=== PATIENT | female | born 1990 | race Caucasian/White ===

== ENCOUNTER 2017-09-28 03:08 | Inpatient (IN) ==
[2017-09-28] MEDS: LR 1,000 ML IV PRN ×3 (03:25→04:55)
[2017-09-28] MEDS ORDERED: CALCIUM CARBONATE Chewable 500mg TABLET PO PRN ×2 (03:44→08:53)
[2017-09-28] MEDS ORDERED: METHYLERGONOVINE 0.2 MG/ML INJECTION IM PRN (03:44)
[2017-09-28] MEDS ORDERED: MAG-AL + SIM ORAL LIQUID 30ml PO PRN (03:44)
[2017-09-28] MEDS ORDERED: CARBOPROST 250 MCG/ML INJECTION IM PRN (03:44)
[2017-09-28] MEDS ORDERED: ACETAMINOPHEN 500 MG TABLET PO PRN ×2 (03:44→08:53)
[2017-09-28] MEDS ORDERED: AMPICILLIN 2 GM in NS 100 ML IV ONE (03:45)
--- OUTSIDE RECORDS SUMMARY | 2017-09-28 03:47 | External Medical Summary | Clinical Summary ---
:1990 Author Organization [facility] Address [address] [place] [address] Phone Care Team Providers Name Role Phone Unavailable Primary Care Provider Unavailable Source Comments Some departments are not documenting in the electronic medical record. If you do not see the information that you expected, contact Release of Information in the Health Information Management department at [phone] for further assistance in locating additional records.[facility] Allergies No Known Allergies Current Medications Prescription Sig. Disp. Refills Start Date End Date Status CALCIUM CARBONATE (TUMS Take by mouth. Active 500 PO) venlafaxine XR (EFFEXOR Take 150 mg by Active XR) 150 mg capsule mouth daily. Take with food. gabapentin (NEURONTIN) 300 Take 300 mg by Active mg capsule mouth twice daily. LORazepam (ATIVAN) 0.5 mg Take 1 Tab by Active tablet mouth every 6 hours as needed for Nausea. propranolol (INDERAL) 40 Take 40 mg by Active mg tablet mouth twice daily. tiZANidine (ZANAFLEX) 2 mg Take 2 mg by mouth Active tablet at bedtime daily. ERGOCALCIFEROL (VITAMIN Take 1 Tab by Active D2) (VITAMIN D PO) mouth daily. ibuprofen (ADVIL) 200 mg Take 200 mg by Active tablet mouth every 6 hours as needed for Pain. Take with food. cetirizine (ZYRTEC) 10 mg Take 10 mg by Active tablet mouth every morning. Active Problems Problem Noted Date Chronic migraine without aura Abnormal finding on MRI of brain Overview: right temporal T2/Flair hyperintensity 05/15/2015 Family History Medical History Relation Name Comments Cancer Maternal Grandfather Hypertension Mother Migraines Mother Cancer Other Relation Name Status Comments Maternal Grandfather Mother Other Social History Tobacco Use Types Packs/Day Years Used Date Current Every Day Smoker Cigarettes Smokeless Tobacco: Never Used Alcohol Use Drinks/Week oz/Week Comments Yes Sex Assigned at Date Recorded Not on file Last Filed Vital Signs Vital Sign Reading Time Taken Blood Pressure 105/76 08/19/2016 8:21 AM CDT Pulse 78 08/19/2016 8:21 AM CDT Temperature - - Respiratory Rate - - Oxygen Saturation - - Inhaled Oxygen Concentration - - Weight 92.8 kg (204 lb 8 oz) 08/19/2016 8:21 AM CDT Height 162.6 cm (5' 4") 08/19/2016 8:21 AM CDT Body Mass Index 35.1 08/19/2016 8:21 AM CDT Plan of Treatment Health Maintenance Due Date Last Done Comments PHYSICAL (COMPREHENSIVE) EXAM 1997 HPV VACCINES (1 of 3 - Female 3 Dose Series) 2001 PERTUSSIS VACCINE 2001 TETANUS VACCINE 2007 CERVICAL CANCER SCREENING 2011 INFLUENZA VACCINE 05/26/2017
--- OUTSIDE RECORDS SUMMARY | 2017-09-28 03:47 | External Medical Summary | Clinical Summary ---
:1990 Author Organization [facility] Address [address] [address] Phone Support Name Relationship Address Phone Unavailable Unavailable [address] [facility] [place] [address] Allergies Active Allergy Reactions Severity Noted Date Comments Diphenhydramine Other (See Comments) 08/07/2015 Hallucination's Current Medications Prescription Sig. Disp. Refills Start Date End Date Status ibuprofen (ADVIL,MOTRIN) Take 200 mg by Active 200 MG tablet mouth every 6 (six) hours as needed. omeprazole (PRILOSEC) 40 Take 1 capsule 30 capsule 11 12/14/2013 Active MG capsule (40 mg total) by mouth daily. ibuprofen (ADVIL,MOTRIN) Take 1 tablet 30 tablet 0 02/21/2014 Active 800 MG tablet (800 mg total) by mouth every 6 (six) hours as needed for Pain. cyanocobalamin (VITAMIN Inject 1,000 Active B-12,) 1000 MCG/ML mcg into the injection muscle every 30 (thirty) days. Cholecalciferol (VITAMIN Take 2,000 Active D) 2000 UNITS TABS Units by mouth. doxazosin (CARDURA) 2 MG Take 1 mg po at 14 tablet 0 07/06/2015 Active tablet bedtime for 14 days venlafaxine (EFFEXOR-XR) Take 150 mg by Active 150 MG 24 hr capsule mouth daily. LORazepam (ATIVAN) 0.5 Take 0.5 mg by Active MG tablet mouth daily as needed for Anxiety. tiZANidine (ZANAFLEX) 2 Take 2 mg by Active MG tablet mouth nightly as needed (Sleep). propranolol (INDERAL) 40 Take 40 mg by Active MG tablet mouth 2 (two) times daily. Probiotic Product Take by mouth. Active (PROBIOTIC DAILY PO) verapamil (CALAN) 80 MG Take 1 tablet 30 tablet 2 08/07/2015 Active tablet (80 mg total) by mouth nightly. Active Problems Problem Noted Date Urgency of urination 07/06/2015 Immunizations Name Dates Previously Given Next Due DTP ([employer] registry) 01/27/1992, 04/22/1991, 02/18/1991, 1990 HPV, quadrivalent (Gardasil) 06/30/2008, 08/09/2007, 04/05/2007 Hib (Hboc) ([employer] registry) 01/27/1992, 04/22/1991, 02/18/1991, 1990 INFLUENZA IIV4 PF 08/07/2015 (FLULAVAL,FLUZONE,FLUARIX,AFLURIA QUAD) MMR 01/27/1992 Meningococcal Polysaccharide valent-4 05/21/2009 Diphtheria Toxoid Conjucate (Menactra) OPV ([employer] registry) 01/27/1992, 02/18/1991, 1990 Family History Medical History Relation Name Comments Heart disease Maternal Uncle Hypertension Mother Relation Name Status Comments Father Alive Maternal Uncle Mother Alive Sister Alive Social History Tobacco Use Types Packs/Day Years Used Date Former Smoker 0 5 Quit: 02/02/2013 Smokeless Tobacco: Never Used Alcohol Use Drinks/Week oz/Week Comments Yes 1 Standard drinks or equivalent 0.5 x2 glasses of wine a week Sex Assigned at Date Recorded Not on file Last Filed Vital Signs Vital Sign Reading Time Taken Blood Pressure 120/62 10/08/2015 11:34 AM [employer]IST[employer] Pulse 64 07/06/2015 9:40 AM CDT Temperature 36.8 C (98.3 F) 07/02/2014 10:08 PM CDT Respiratory Rate 16 07/02/2014 10:08 PM CDT Oxygen Saturation 96% 07/02/2014 10:08 PM CDT Inhaled Oxygen Concentration - - Weight 86.2 kg (190 lb) 08/07/2015 10:03 AM CDT Height 162.6 cm (5' 4") 08/07/2015 10:03 AM CDT Body Mass Index 32.61 08/07/2015 10:03 AM CDT Plan of Treatment Health Maintenance Due Date Last Done Comments Varicella Vaccines (1 of 2 - 2 2003 Dose Adolescent Series) DTaP,Tdap,and Td Vaccines (5 - 2009 01/27/1992, 04/22/1991, Tdap) 02/18/1991, Additional history exists CERVICAL CANCER SCREENING 2011 Influenza Vaccine (#1) 2017 08/07/2015 HPV Vaccines Completed 06/30/2008, 08/09/2007, 04/05/2007 Results Not on filefrom Last 3 Months
[2017-09-28 04:18] VITALS: BMI 40.5
[2017-09-28] MEDS ORDERED: ROPIVACAINE 1% 10MG/ML INJ 200 MG, SUFentanil 50 MCG in NS 100 ML EPI PRN (04:19)
[2017-09-28] MEDS ORDERED: DiphenhydrAMINE 50 MG/ML INJECTION IVP PRN ×2 (04:19→09:10)
[2017-09-28] MEDS ORDERED: ONDANSETRON 4 MG/2 ML INJECTION IVP PRN ×2 (04:19→09:10)
[2017-09-28] MEDS ORDERED: NALOXONE 0.4 MG/ML INJECTION IVP PRN (04:19)
--- NOTE | 2017-09-28 04:19 | Anesthesia Preoperative Report ---
Anesthesia Epidural/Spinal Rec - Date and Time Date: 09/28/17 Procedure: Labor Epidural Plan: Epidural - Vital Signs Vital Signs: Temperature 98.3 F 09/28/17 03:16 Pulse Rate 130 H 09/28/17 03:16 Respiratory Rate 20 09/28/17 03:16 Blood Pressure 128/81 09/28/17 03:16 NPO since: 1829 /Para: P:0 Heart Rate: 149 Height and Weight: 5' 4" 236 lbs - Medictaions & Allergies Inpatient Medications: Current Medications Acetaminophen (Tylenol) 500 - 1,000 mg PO Q4H PRN PRN Reason: Pain Al Hydroxide/Mg Hydroxide (Maalox Plus) 30 ml PO Q3H PRN PRN Reason: Indigestion Calcium Carbonate (Tums) 500 - 1,000 mg PO Q2H PRN PRN Reason: Indigestion Carboprost Tromethamine (Hemabate) 250 mcg IM O PRN PRN Reason: .Downtime Ampicillin Sodium 2 gm/ Sodium (Chloride) 100 mls @ 200 mls/hr IV O ONE Stop: 09/28/17 04:14 Lactated Ringer's (Lactated Ringers) 1,000 mls @ 999 mls/hr IV .Q1H1M PRN Methylergonovine Maleate (Methergine) 0.2 mg IM O PRN Misoprostol (Cytotec) 800 mcg MT ONCE PRN Allergies/Adverse Reactions: Allergies Allergy/AdvReac Type Severity Reaction Status Date / Time No Known Drug Allergies Allergy Verified 09/25/17 06:05 - Home Medications Home Medications: Home Medications Medication Instructions Recorded Confirmed Type Acetaminophen [Tylenol] 500 - 1,000 mg PO PRN PRN 09/10/17 09/25/17 History Pnv No.95/Ferrous Fum/Folic AC 1 each PO DAILY 09/10/17 09/25/17 History [ Tablet] DiphenhydrAMINE [Benadryl] 2 cap PO Q6H PRN 09/25/17 09/25/17 History Ranitidine [Zantac] 150 mg PO PRN PRN 09/25/17 09/25/17 History - Medical History Gastrointestional: Reports: Gastroesophageal Reflux Disease, Morbid Obesity Neuro/Musculoskeletal: Reports: Headaches (migraines), Other (neck fusion) Renal/Endocrine: Reports: Other (GBS (+)) Other History: Reports: Anesthesia Reactions (nausea), Now (SCAR: ) - Surgical History GI Surgery/Treatments: Reports: Cholecystectomy (2009) Musculoskeletal Surgery/Tx: Reports: Other ("FUSION ON MY NECK C5-C6") Reproductive Surgery/Treatment: DENIES: Section Anesthesia Reactions: None Hx Family Anesthesia Reaction: No History of Motion Sickness: No - Social History Smoking Status: Current every day smoker Packs per day: 0.1 Pack-years: 5 Second Hand Exposure: No Substance Use Type: does not use Alcohol Intake Frequency: does not drink Hx Chewing Tobacco Use: No - Pertinent Findings Lab Data: CBC and BMP 09/28/17 03:40 - Physical Exam Respiratory Exam: lungs clear Cardiovascular Exam: regular rate and rhythm - Airway Assessment Mallampati Score: II TMD: 3 Fingerbreadths Neck Extension: fair Overall Assessment: no airway concerns - ASA ASA Score: 3 - Discussion Discussion: Discussed risks/options/alternatives of anesthesia and questions answered. Patient consents. Nursing pain assessment noted. Anesthesia Discussion: family member Attestation Statement: Prior to the delivery of any anesthetic medication, I examined the patient, developed the plan, obtained the patient's consent and discussed the risk and benefits of the procedure with the patient/guardian.
[2017-09-28] MEDS ORDERED: CITRIC ACID/SODIUM CITRATE 30ml PO ONE (06:40)
[2017-09-28] MEDS ORDERED: FAMOTIDINE PB 20 MG/50 ML BAG IV ONE (06:40)
[2017-09-28] MEDS ORDERED: CEFAZOLIN PREMIX (MC ONLY) 2 GM/50 ML BAG IV ONE (06:40)
[2017-09-28] MEDS ORDERED: AZITHROMYCIN IV 500 MG in NS 250ml 250 ML IV ONE (06:42)
--- NOTE | 2017-09-28 06:48 | OB/GYN Progress Note ---
- Pain Control Pain control: Tolerating well, Epidural - Pelvic Exam Dilation (cm): 10 Effacement (%): 100 station: +1 Amniotic membrane status: Ruptured Comments: Thick Mec - Contractions Monitor mode: External Contraction pattern: Regular Contraction intensity: Mild - Status status: Category ll - Assessment and Plan Assessment: active labor Plan: (Failure to descend after effective Mat Effort. Proceed with PLTCS discussed R/B/A Inlcuding Infection, Injury to bowel/bladder/baby, bleeding with need for transfusion and . Questions elicited and answered. )
[2017-09-28] MEDS ORDERED: NOZIN NASAL SWAB NAS ONE ×2 (06:53)
[2017-09-28] MEDS ORDERED: CLINDAMYCIN PB 900 MG/50 ML BAG IV SCH (07:15)
[2017-09-28] MEDS ORDERED: TRANEXAMIC ACID 1,000 MG in NS 100 ML IV ONE (07:20)
[2017-09-28] MEDS ORDERED: OXYTOCIN BOLUS BAG 30 UNIT/500 ML ML IV SCH (07:32)
[2017-09-28] MEDS ORDERED: ONDANSETRON 4 MG/2 ML INJECTION ONE (07:43)
[2017-09-28] MEDS ORDERED: LIDOCAINE 1.5% W/EPI 1:200,000 30ml SDV PF ONE (07:43)
[2017-09-28] MEDS ORDERED: PHENYLEPHRINE INJ 10 MG/ML VIAL IV ONE (07:43)
[2017-09-28] MEDS ORDERED: DiphenhydrAMINE 50 MG/ML INJECTION ONE (07:54)
[2017-09-28] MEDS ORDERED: MORPHINE SULFATE PF 5mg/10ml INJ (Duramorph) ONE (07:58)
--- NOTE | 2017-09-28 08:08 | Operative Note ---
Operative Note - Date of Operation Date of Operation: 09/28/17 - General : 1 Para: 0 Expected Date of Delivery: 09/27/17 - Preoperative Diagnosis Chorioamnionitis, Thick meconium Preoperative Diagnosis: Failure to Descend - Postoperative Diagnosis descent at (+1) - Procedure Primary - Surgeon Surgeon: Andreia Haddad MD - Museum Registrar OB Museum Registrar: Panchito Parada MD - Anesthesia Anesthesia Provider: Floyd Purdy CRNA Anesthesia Type: Epidural - Estimated Blood Loss Estimated Blood Loss:: 600 - Findings Findings: viable male - APGARS : 2/7/9 - Weight [place] Weight (grams): 3092 - Name Name: Jayson
[2017-09-28] MEDS ORDERED: SIMETHICONE 80 MG CHEWABLE TABLET PO PRN (08:53)
[2017-09-28] MEDS ORDERED: HYDROCORTISONE 2.5% CREAM 30gm RECTALLY PRN (08:53)
[2017-09-28] MEDS ORDERED: OXYTOCIN DRIP 30 UNIT/500 ML ML IV SCH (08:53)
[2017-09-28] MEDS ORDERED: D5LR 1,000 ML IV SCH (08:53)
[2017-09-28] MEDS ORDERED: HYDROCODONE/APAP 5mg/325mg TABLET PO PRN (08:53)
[2017-09-28] MEDS ORDERED: METOCLOPRAMIDE 10mg/2ml INJECTION IVP PRN (08:53)
[2017-09-28] MEDS ORDERED: DiphenhydrAMINE 25 MG CAPSULE PO PRN (08:53)
[2017-09-28] MEDS ORDERED: NALOXONE 2 MG/2 ML INJECTION PFS IVP PRN (09:10)
[2017-09-28] MEDS: IBUPROFEN 800 MG TABLET PO PRN ×2 (09:21→18:07)
[2017-09-28] MEDS: AMPICILLIN/SULBACTAM 3 G in NS 100 ML IV SCH ×2 (10:01→16:20)
[2017-09-28] MEDS ORDERED: NOZIN NASAL SWAB NAS SCH (14:00)
[2017-09-28] MEDS: SIMETHICONE 80 MG CHEWABLE TABLET PO SCH ×3 (14:24→18:52)
[2017-09-28] MEDS: DOCUSATE CALCIUM 240 MG CAPSULE PO SCH (14:38)
[2017-09-28] MEDS: MetroNIDAZOLE 500 MG TABLET PO SCH ×2 (17:41→18:52)
[2017-09-29] MEDS: IBUPROFEN 800 MG TABLET PO PRN ×3 (02:48→18:41)
[2017-09-29] MEDS: SIMETHICONE 80 MG CHEWABLE TABLET PO SCH ×5 (03:47→22:02)
--- NOTE | 2017-09-29 08:16 | OB/GYN Progress Note ---
OB-PP Progress Note - General POD:: POD1 - Subjective Date: 09/29/17 Lochia: Moderate Pain: controlled Voiding: voiding Nausea or Vomiting Present: No - Objective Vital Signs: Last Vital Signs Temp 97.5 F 09/29/17 04:45 Pulse 109 H 09/29/17 04:45 Resp 16 09/29/17 04:45 BP 98/60 09/29/17 04:45 Pulse Ox 96 09/29/17 04:45 Urine Output: good General: alert and oriented Abdomen: fundus firm Incision: intact (dressing removed.) Extremities: non-tender Edema: none Laboratory: Laboratory Results - last 24 hr 09/28/17 09/29/17 08:03 00:52 WBC 21.9 H RBC 3.47 L Hgb 8.8 L D Hct 28.9 L D MCV 83.3 MCH 25.4 L MCHC 30.4 L RDW Std Deviation 47.2 Plt Count 263 MPV 10.1 Cord ABG pH 7.226 Cord ABG pCO2 51.1 Cord ABG pO2 15 Cord ABG HCO3 21 Cord ABG Total CO2 23 Cord ABG Base Excess -7.0 Cord ABG O2 Sat 13.0 - Assessment Assessment: Primary C/S - Plan Plan: routine care (Baby in SCN - improving. Enc. ambulation today. )
[2017-09-29] MEDS: DOCUSATE CALCIUM 240 MG CAPSULE PO SCH (09:35)
[2017-09-29] MEDS: FERROUS SULFATE 324 MG TABLET PO SCH (09:35)
[2017-09-29] MEDS: MetroNIDAZOLE 500 MG TABLET PO SCH ×3 (09:35→22:02)
--- NOTE | 2017-09-29 09:46 | Anesthesia Postoperative Note ---
- Date and Time Date: 09/29/17 Time: 09:46 - Status Patient Participated in Evaluation: Patient Participated in Person Vital Signs: Temperature 97.5 F 09/29/17 04:45 Pulse Rate 109 H 09/29/17 04:45 Respiratory Rate 16 09/29/17 04:45 Blood Pressure 98/60 09/29/17 04:45 Pulse Oximetry 96 09/29/17 04:45 Respiratory Function: Airway Patent Cardiovascular Function: Regular Pulse Mental Status: Alert and Oriented Pain Intensity: 1 Hydration: Taking PO Fluids Complications During Recover: None Apparent - Follow-Up Instructions Instructions: Per Surgeon
--- NOTE | 2017-09-29 09:52 | Operative Note ---
DATE OF PROCEDURE 09/28/2017 PREOPERATIVE DIAGNOSIS Arrest of descent. POSTOPERATIVE DIAGNOSIS Arrest of descent. PROCEDURE Primary low transverse section. SURGEON Andreia Haddad MD P[employer] CLEANER Panchito Lindsey, DO EBL 600 ml ANESTHESIA Continuous epidural - Floyd Purdy CRNA DESCRIPTION OF PROCEDURE Ms. Cortes was brought to the OR and placed on the OR table in a supine position with left lateral displacement. A Chahal catheter was placed to dependent drain. Her epidural analgesia was brought up to adequate surgical levels. The abdomen was prepped and draped in the usual sterile fashion. A Pfannenstiel skin incision was made with a sharp knife. This was carried down to fascia. Fascia was incised transversely. Fascia was then tented up. This was bluntly and sharply dissected free of the rectus muscles. Rectus muscles were bluntly divided. Peritoneum was tented up and entered sharply, then extended vertically. The bladder blade was inserted. The vesicouterine fold of peritoneum was tented up and incised transversely and a bladder flap bluntly created. The bladder blade was then reinserted to protect the bladder. A low transverse uterine incision was made with a sharp knife. There was thick meconium consistent with prior findings. Baby was very wedged down in the pelvis. We had quite a bit of difficulty delivering the head to the point where the RN was about to push from below. Fortunately, Dr. lindsey was able to elevate the head and deliver. Baby was bulb suctioned on the perineum and then delivered in total. Baby was quite floppy from all this effort. Cord was doubly clamped and cut and the baby was given to Dr. Kiser and his team for care. This is a liveborn male with Apgars of 2/7/9. He weighed 3090 g. The placenta was then manually removed, intact. It had a normal configuration and staining with meconium and a normal-appearing three- vessel cord. The uterus was exteriorized and we swept the cavity clear of membranes. The myometrial incision had extended on the patient's left about 2 cm inferiorly. This was grasped with Luis clamps. We then reapproximated in a running locking suture using an 0 Monocryl. We reinspected. Hemostasis was good throughout. The incision was intact. Uterus, tubes and ovaries were noted to be grossly normal and were returned to the abdominal cavity. We then reinspected the incision. Before reapproximating it, I then reapproximated the bladder flap with a running nonlocking 2-0 Monocryl. We then returned to the abdominal cavity and reinspected. Good hemostasis. We reapproximated peritoneum with a running nonlocking 2-0 Vicryl. Fascia was reapproximated with a running nonlocking 0 Vicryl. We irrigated copiously with sterile normal saline, then reapproximated skin edges with subcuticular style 3-0 undyed Vicryl. The wound was dressed with Steri-Strips and a sterile dressing. Counts were correct postoperatively x 2. As the patient was being transferred, the nurses noted a bit of pinkish red tinge to the urine. That has since cleared up. The patient was transferred to recovery in stable condition. MURIEL
[2017-09-30] MEDS: IBUPROFEN 800 MG TABLET PO PRN ×3 (04:12→17:04)
--- NOTE | 2017-09-30 08:15 | OB/GYN Progress Note ---
OB-PP Progress Note - General POD:: POD2 - Subjective Date: 09/30/17 Lochia: Moderate Pain: controlled Voiding: voiding Nausea or Vomiting Present: No - Objective Vital Signs: Last Vital Signs Temp 97.3 F 09/30/17 04:30 Pulse 103 H 09/30/17 04:30 Resp 16 09/30/17 04:30 BP 107/64 09/30/17 04:30 Pulse Ox 98 09/30/17 04:30 Urine Output: good General: alert and oriented Abdomen: fundus firm Incision: clean, dry, intact Extremities: non-tender Edema: none - Assessment Assessment: Primary C/S - Plan Plan: routine care (Possible dism to board this evening. )
[2017-09-30] MEDS: DOCUSATE CALCIUM 240 MG CAPSULE PO SCH (09:08)
[2017-09-30] MEDS: FERROUS SULFATE 324 MG TABLET PO SCH (09:08)
[2017-09-30] MEDS: MetroNIDAZOLE 500 MG TABLET PO SCH ×3 (09:08→18:48)
[2017-09-30] MEDS: SIMETHICONE 80 MG CHEWABLE TABLET PO SCH ×2 (09:09→13:23)
[2017-09-30 18:30] VITALS: BP 105/72; PULSE 102; RESP 16; TEMP 98.1; O2SAT 100
== END 2017-09-30 19:25 | disposition home or self-care (01) | DRG 765 ==
LOC: MC 03:42
PROVIDERS: ADMIT Obstetrics & Gynecology; ATTEND Obstetrics & Gynecology